=== PATIENT | male | born 1965 | race Caucasian/White ===

== ENCOUNTER 2017-07-18 11:25 | Emergency (ER) | payer BC ==
[~2017-07-18] VITALS: Ht 177.8 cm; Wt 94.5 kg
[~2017-07-18 11:25] MED LIST: PREDNISONE20 MG PO
[2017-07-18 11:30] VITALS: TEMP 97.8
[2017-07-18] MEDS ORDERED: PROAIR HFA0.09 MG/AC IH (11:37)
[2017-07-18 11:59] LABS: BASO # 0.1 (0.0-0.2); BASO % 0.7 % (0.0-2.0); EOS # 0.5 (0.0-0.7); EOS % 6.6 % (0-4.0); GRAN # 3.2 (1.4-6.5); GRAN % 46.2 % (42.2-75.2); HEMATOCRIT 45.3 % (42.0-52.0); HEMOGLOBIN 15.9 g/dl (13.5-18.0); LYMPH # 2.5 (1.2-3.4); LYMPH % 35.7 % (20.0-51.0); MEAN CELL VOLUME 87 fl (80.0-100.0); MEAN CORPUSCULAR HEMOGLOBIN 31 pg (27.0-31.0); MEAN CORPUSCULAR HGB CONC 35 g/dl (33.0-37.0); MEAN PLATELET VOLUME 8.6 fl (7.4-10.4); MONO # 0.7 (0.1-0.6); MONO % 9.9 % (1.7-9.3); PLATELET COUNT 224 K/mm3 (130-400); RED BLOOD COUNT 5.19 M/mm3 (4.20-5.60)
[2017-07-18 12:15] LABS: ALANINE AMINOTRANSFERASE 35 U/L (21-72); ALKALINE PHOSPHATASE 89 U/L (50-136); ANION GAP 11 mmol/L (7-16); AST,SGOT 32 U/L (15-37); BILIRUBIN,TOTAL 0.5 mg/dL (0.0-1.0); BLOOD UREA NITROGEN 17 mg/dL (9-20); CALCIUM 9.3 mg/dL (8.4-10.2); CARBON DIOXIDE 27 mmol/L (22-30); CHLORIDE 103 mmol/L (98-107); CREATININE, serum 0.92 mg/dL (0.66-1.25); GLUCOSE 105 mg/dL (74-106); LIPASE 153 U/L (23-300); POTASSIUM 3.8 mmol/L (3.4-5.0); SODIUM 141 mmol/L (137-145); TOTAL PROTEIN 7.4 gm/dL (6.4-8.2)
[2017-07-18 12:18] LABS: ALCOHOL(ethanol),MEDICAL < 10 mg/dL
[2017-07-18 14:30] VITALS: BP 123/96; PULSE 75
== END 2017-07-18 15:00 | disposition home or self-care (01) ==
LOC: COL.ER 11:25
PROVIDERS: Emergency Medicine
DX: G40.909 Epilepsy, unspecified, not intractable, without status epilepticus (principal); J45.909 Unspecified asthma, uncomplicated
CPT/HCPCS: J2405

== ENCOUNTER → 2017-07-28 | Outpatient (CLI) | payer BC ==
[~2017-07-28] MED LIST changes: +PROAIR HFA0.09 MG/AC IH
== END ==
LOC: COL.CARD 08:34
DX: R56.9 Unspecified convulsions (principal)

== ENCOUNTER 2021-02-04 11:37 | Outpatient (CLI) | payer BC ==
[~2021-02-04] VITALS: Ht 177.8 cm; Wt 90.0 kg
[2021-02-04 11:16] VITALS: BP 126/81; PULSE 100; TEMP 100.1
[2021-02-04 11:46] VITALS: BP 121/79; PULSE 96
[2021-02-04] MEDS ORDERED: ZYRTEC 10MG10 MG PO (11:49)
[2021-02-04] MEDS ORDERED: RX NASAL SPRAY NS (11:52)
[2021-02-04 12:00] VITALS: BP 124/72; PULSE 102
[2021-02-04 12:15] VITALS: BP 121/89; PULSE 100
[2021-02-04 12:30] VITALS: BP 119/75; PULSE 104; TEMP 101.4
[2021-02-04 13:00] VITALS: BP 127/83; PULSE 108; TEMP 102.2
== END 2021-02-04 14:53 | disposition home or self-care (01) ==
LOC: EUO 11:37
DX: J02.9 Acute pharyngitis, unspecified (principal)
CPT/HCPCS: M0243; Q0244